=== PATIENT | female | born 1970 | race Caucasian/White ===

== ENCOUNTER → 2019-06-17 | Outpatient (CLI) | payer OTHER ==
[~2019-06-17] MED LIST: ALBUTEROL INHAL17 GM IH; NOHOMEMEDICATIONS; ZPAK PO
== END ==
LOC: M.ULTRA 11:36
DX: R22.42 Localized swelling, mass and lump, left lower limb (principal); M79.662 Pain in left lower leg; Z88.8 Allergy status to other drugs, medicaments and biological substances